=== PATIENT | male | born 1960 | race Caucasian/White ===

== ENCOUNTER 2017-08-27 01:20 | Emergency (ER) | payer SELFPAY ==
[~2017-08-27] VITALS: Ht 182.9 cm; Wt 86.0 kg
[~2017-08-27 01:20] MED LIST: CYCL-36 PO; IBUP800T23 PO; RANI150T PO; TRAM50TA PO; Z.0.NO CURRENT MEDS
[2017-08-27 01:31] VITALS: BP 157/87; PULSE 89; RESP 20; TEMP 97.3; O2SAT 99
[2017-08-27 02:09] VITALS: RESP 16; O2SAT 99
--- NOTE | 2017-08-27 02:09 | PD ---
HPI Chief Complaint: Chest Pain Time Seen by Provider: 01:48 Travel History International Travel<30 days: No Contact w/Intl Traveler<30days: No Traveled to known affect area: No History of Present Illness HPI Is a 57-year-old man who presents to the emergency department complaining of left shoulder and left arm pain and chest pain is been ongoing for the past week. Did not come on super abruptly, but has been worsening since onset. States pain is severe, especially in the morning. Sometimes eating relieves a little bit. A little bit worse with any exertion. Apparently was admitted to [facility] for 3 days, but reports they did not do any tests on him. States they did an x-ray and EKG. States that they "shot me up with morphine". Pain is been constant since onset, worsening. Pains mostly in the chest and radiating to between the shoulder blades at this time. Patient admits to active IV drug use with heroin and cocaine, last used 2 hours ago. History Past Medical History Narrative Medical IV drug use cocaine and heroin Past Surgical History Surgical History: No Previous Surgery Social History Alcohol Use: No Tobacco Use: Yes (04/26 PPD) Allergies-Medications (Allergen,Severity, Reaction): Coded Allergies: No Known Allergies (Verified , 10/17/12) Reported Meds & Prescriptions Reported Meds & Active Scripts Active Flexeril (Cyclobenzaprine HCl) 10 Mg Tab 10 Mg PO TID Ranitidine Hcl (Ranitidine HCl) 150 Mg Tab 150 Mg PO BID Ibuprofen 800 Mg Tab 800 Mg PO TID Tramadol Hcl (Tramadol HCl) 50 Mg Tab 50-100 Mg PO Q6HPRN Reported No Current Meds (Miscellaneous Medication) Misc Review of Systems Except as stated in HPI: all other systems reviewed are Neg Physical Exam Narrative GENERAL: 57-year-old man, generally well-appearing, no acute distress. SKIN: Focused skin assessment warm/dry. Scattered skin wounds. HEAD: Atraumatic. Normocephalic. EYES: Pupils equal and round. No scleral icterus. No injection or drainage. ENT: No nasal bleeding or discharge. Mucous membranes pink and moist. NECK: Trachea midline. No JVD. CARDIOVASCULAR: Regular rate and rhythm. No murmur. RESPIRATORY: No accessory muscle use. Clear to auscultation. Breath sounds equal bilaterally. GASTROINTESTINAL: Abdomen soft, non-tender, nondistended. Hepatic and splenic margins not palpable. MUSCULOSKELETAL: No obvious deformities. No edema. NEUROLOGICAL: Awake and alert. No obvious cranial nerve deficits. Motor grossly within normal limits. Normal speech. PSYCHIATRIC: Appropriate mood and affect; insight and judgment normal. Data Data Last Documented VS Vital Signs Date Time Temp Pulse Resp B/P (MAP) Pulse Ox O2 Delivery O2 Flow Rate FiO2 08/27/17 02:09 16 99 08/27/17 01:53 88 08/27/17 01:31 97.3 157/87 (110) Orders Orders Electrocardiogram (08/27/17 02:02) Complete Blood Count With Diff (08/27/17 02:02) Comprehensive Metabolic Panel (08/27/17 02:02) Magnesium (Mg) (08/27/17 02:02) Prothrombin Time / Inr (Pt) (08/27/17 02:02) Act Partial Throm Time (Ptt) (08/27/17 02:02) Troponin I (08/27/17 02:02) Lipase (08/27/17 02:02) Ecg Monitoring (08/27/17 02:02) Iv Access Insert/Monitor (08/27/17 02:02) Oximetry (08/27/17 02:02) Oxygen Administration (08/27/17 02:02) Sodium Chloride 0.9% Flush (Ns Flush) (08/27/17 02:15) Sodium Chlorid 0.9% 500 Ml Inj (Ns 500 M (08/27/17 02:15) Chest, Pa & Lat (08/27/17 02:02) Cta Thor Abd Aorta W Iv C W3d (08/27/17 02:02) Iohexol 350 Inj (Omnipaque 350 Inj) (08/27/17 03:18) Labs Laboratory Tests Test 08/27/17 02:13 White Blood Count 9.8 TH/MM3 Red Blood Count 4.58 MIL/MM3 Hemoglobin 12.4 GM/DL Hematocrit 36.1 % Mean Corpuscular Volume 78.9 FL Mean Corpuscular Hemoglobin 27.0 PG Mean Corpuscular Hemoglobin Concent 34.2 % Red Cell Distribution Width 13.9 % Platelet Count 481 TH/MM3 Mean Platelet Volume 6.7 FL Neutrophils (%) (Auto) 71.4 % Lymphocytes (%) (Auto) 20.7 % Monocytes (%) (Auto) 6.1 % Eosinophils (%) (Auto) 0.8 % Basophils (%) (Auto) 1.0 % Neutrophils # (Auto) 7.0 TH/MM3 Lymphocytes # (Auto) 2.0 TH/MM3 Monocytes # (Auto) 0.6 TH/MM3 Eosinophils # (Auto) 0.1 TH/MM3 Basophils # (Auto) 0.1 TH/MM3 CBC Comment DIFF FINAL Differential Comment Prothrombin Time 12.7 SEC Prothromb Time International Ratio 1.3 RATIO Activated Partial Thromboplast Time 29.0 SEC Blood Urea Nitrogen 20 MG/DL Creatinine 1.21 MG/DL Random Glucose 131 MG/DL Total Protein 8.5 GM/DL Albumin 3.2 GM/DL Calcium Level 8.8 MG/DL Magnesium Level 1.9 MG/DL Alkaline Phosphatase 100 U/L Aspartate Amino Transf (AST/SGOT) 31 U/L Alanine Aminotransferase (ALT/SGPT) 21 U/L Total Bilirubin 0.3 MG/DL Sodium Level 136 MEQ/L Potassium Level 3.9 MEQ/L Chloride Level 102 MEQ/L Carbon Dioxide Level 24.2 MEQ/L Anion Gap 10 MEQ/L Estimat Glomerular Filtration Rate 62 ML/MIN Troponin I LESS THAN 0.02 NG/ML Lipase 74 U/L MDM Medical Decision Making Medical Screen Exam Complete: Yes Emergency Medical Condition: Yes Interpretation(s) My review of EKG: Normal sinus rhythm at a rate of 84, normal axis, normal intervals, lateral T-wave flattening 1 and aVL, no definite evidence of acute ischemia. LABS: CBC mild anemia CMP is unremarkable. Troponins negative. Total protein elevated. Lipase is normal. Coags are unremarkable. CTA aorta: Negative Chest x-ray is negative. Differential Diagnosis Gastritis/reflux/peptic ulcer disease, dissection, ACS, PE, pancreatitis, other Narrative Course Medical decision making Is a 57-year-old man presents to the emergency department complaining of chest pain rating the left shoulder left arm and between the shoulder blades ongoing for the past week. Reportedly admitted at [facility] for several days. Unclear why. Patient denies any significant testing or cardiovascular testing. Possibly there were sitting on cultures for endocarditis. He states he checked himself out after couple days. Continues using IV heroin and cocaine. Pain is been ongoing. EKG does not show any definite evidence of ischemia. Symptoms been constant. Will check troponin. Constant symptoms for 1 week with a negative troponin is pretty low risk for ACS. Will check CT for dissection given the radiation of his pain, and the nature of it and the history of cocaine use. If negative, will treat for gastritis/peptic ulcer disease. Diagnosis Primary Impression: Chest pain Additional Impression: Gastritis Additional Instructions: Take omeprazole as prescribed. Avoid illicit drugs. Avoid NSAIDs such as ibuprofen, Aleve, aspirin, as well as other stomach irritants such as alcohol. Follow-up with her primary physician for further evaluation. Med/Other Pt SpecificInfo: Prescription(s) given Scripts Omeprazole (Omeprazole) 40 Mg Cap 40 MG PO DAILY, #30 CAP 0 Refills Prov: Ralph Elizondo MD 08/27/17 Disposition: 01 DISCHARGE HOME Condition: Stable Ralph Elizondo MD August 27, 2017 02:09
[2017-08-27] MEDS ORDERED: SODIUM CHLORIDE 0.9% FLUSH 10 ML FLUSH IVF PRN (02:15)
[2017-08-27] MEDS ORDERED: SODIUM CHLORID 0.9% 500 ML INJ 500 ML IV ONE (02:15)
[2017-08-27 02:40] LABS: BASOPHIL # 0.1 TH/MM3 (0-0.2); EOSINOPHIL # 0.1 TH/MM3 (0-0.4); EOSINOPHIL % 0.8 % (0.0-4.0); HEMATOCRIT 36.1 % (39.0-51.0); HEMOGLOBIN 12.4 GM/DL (13.0-17.0); LYMPH % 20.7 % (9.0-44.0); MEAN CELL VOLUME 78.9 FL (80.0-100.0); MEAN CORPUSCULAR HGB CONC 34.2 % (32.0-36.0); MEAN PLATELET VOLUME 6.7 FL (7.0-11.0); MONO % 6.1 % (0.0-8.0); MONOCYTE # 0.6 TH/MM3 (0-0.9); NEUT % 71.4 % (16.0-70.0); PLATELET COUNT 481 TH/MM3 (150-450); RED BLOOD COUNT 4.58 MIL/MM3 (4.50-5.90); RED CELL DISTRIBUTION WIDTH 13.9 % (11.6-17.2); WHITE BLOOD COUNT 9.8 TH/MM3 (4.0-11.0)
--- NOTE | 2017-08-27 02:49 | RADRPT ---
EXAM DATE/TIME: 08/27/2017 02:36 [facility] COMPARISON: No previous studies available for comparison. INDICATIONS : Chest pain. MEDICAL HISTORY : None. SURGICAL HISTORY : None. ENCOUNTER: Initial ACUITY: 1 day PAIN SCORE: 10/10 LOCATION: Bilateral chest FINDINGS: Small nodular densities fairly symmetrically present over the lower lung topete bilaterally are likel y nipple shadows. Granuloma in the lateral left midlung. No definite infiltrate or effusion. Cardiac contours are satisfactory for technique and projection. Degenerative changes present in the spine. CONCLUSION: No definite acute cardiopulmonary disease Polo Cruz MD on August 27, 2017 at 2:46 Board Certified Radiologist. This report was verified electronically.
[2017-08-27 02:53] LABS: INTERNATIONAL NORMALIZED RATIO 1.3 RATIO; PROTHROMBIN TIME - PATIENT 12.7 SEC (9.8-11.6)
[2017-08-27 03:02] LABS: ALKALINE PHOSPHATASE 100 U/L (45-117); TOTAL BILIRUBIN ADULT 0.3 MG/DL (0.2-1.0); TOTAL PROTEIN 8.5 GM/DL (6.4-8.2); TROPONIN I LESS THAN 0.02 NG/ML (0.02-0.05)
[2017-08-27 03:03] LABS: ALBUMIN 3.2 GM/DL (3.4-5.0); ALT (GPT) 21 U/L (12-78); AST (GOT) 31 U/L (15-37); BICARBONATE 24.2 MEQ/L (21.0-32.0); BLOOD UREA NITROGEN 20 MG/DL (7-18); CALCIUM 8.8 MG/DL (8.5-10.1); CHLORIDE 102 MEQ/L (98-107); CREATININE 1.21 MG/DL (0.60-1.30); GLOMERULAR FILTRATION RATE 62 ML/MIN (>89); GLUCOSE,RANDOM 131 MG/DL (74-106); MAGNESIUM 1.9 MG/DL (1.5-2.5); SODIUM (NA) 136 MEQ/L (136-145)
[2017-08-27] MEDS ORDERED: IOHEXOL 350 MG/ML 10 ML VIAL (for RAD DIAG) IVCONTRAST ONE (03:18)
--- NOTE | 2017-08-27 04:46 | RADRPT ---
EXAM DATE/TIME: 08/27/2017 03:12 [facility] COMPARISON: No previous studies available for comparison. INDICATIONS : Chest pain. IV CONTRAST: 99 cc Omnipaque 350 (iohexol) IV RADIATION DOSE: 8.24 CTDIvol (mGy) MEDICAL HISTORY : Gastroesophageal reflux disease. Substance abuse. SURGICAL HISTORY : None. ENCOUNTER: Initial ACUITY: 2 weeks PAIN SCALE: 7/10 LOCATION: chest TECHNIQUE: Volumetric scanning was performed using a multi-row detector CT scanner. The data was post processed with a variety of visualization algorithms including full volume maximum intensity projection, multi -planar sliding thin slab reformation, curved planar reformation, and surface rendering techniques. Using automated exposure control and adjustment of the mA and/or kV according to patient size, radiat ion dose was kept as low as reasonably achievable to obtain optimal diagnostic quality images. DICOM format image data is available electronically for review and comparison. FINDINGS: LUNGS: There is no consolidation or pneumothorax. No concerning pulmonary nodule is visualized. No pleural fluid is present. MEDIASTINUM: No abnormally enlarged lymph nodes by CT criteria. No axillary or hilar abnormalities are identified. ABDOMEN: The liver and spleen are free of focal defects. The gallbladder and pancreas demonstrate no abnormali ty. The adrenal glands are normal. The kidneys demonstrate no evidence of solid renal mass or hydrone phrosis. No free fluid or abdominal masses are identified. No para-aortic adenopathy is seen. PELVIS: No evidence of free fluid or pelvic mass. No abnormally enlarged inguinal or retroperitoneal lymph no florentino are present. The bladder is unremarkable. THORACIC AORTA: The thoracic aorta is normal in caliber throughout. No evidence of dissection. Variant arch anatomy i s identified with direct origin of the left vertebral artery from the aortic arch. Visualized arch ve ssels are unremarkable. ABDOMINAL AORTA: The aorta is normal in caliber without aneurysm or dissection. The renal arteries are patent bilater ally. The proximal celiac and superior mesenteric arteries are patent and normal in diameter. PELVIC VESSELS: Mild eccentric disease involving iliacs. No aneurysm or significant stenosis. No dissection. Visualiz ed proximal thigh vessels are intact CONCLUSION: No acute findings Polo Cruz MD on August 27, 2017 at 4:40 Board Certified Radiologist. This report was verified electronically.
[2017-08-27] MEDS ORDERED: OMEP40CA2 PO (04:55)
[2017-08-27] MEDS ORDERED: PANTOPRAZOLE SOD 40 MG DELAYED RELEASE TAB PO ONE (05:00)
[2017-08-27] MEDS ORDERED: ACETAMINOPHEN/HYDROcodone 325 MG/5 MG TAB PO ONE (05:00)
--- NOTE | 2017-08-27 14:06 | EKG ---
Date Performed: 08/27/2017 Time Performed: 01:43:50 PTAGE: 57 years EKG: Sinus rhythm NONSPECIFIC T-WAVE ABNORMALITY BORDERLINE ECG PREVIOUS TRACING : 10/24/2012 20.48 DOCTOR: Uri Muniz Interpretating Date/Time 08/27/2017 14:04:34
[2017-08-28] MEDS ORDERED: ROBA750T PO (06:23)
== END 2017-08-27 05:15 | disposition home or self-care (01) ==
LOC: NEPE 01:20
DX: R07.9 Chest pain, unspecified (principal); K29.70 Gastritis, unspecified, without bleeding; M25.512 Pain in left shoulder; D64.9 Anemia, unspecified; R94.31 Abnormal electrocardiogram [ECG] [EKG]; F17.200 Nicotine dependence, unspecified, uncomplicated; Z79.899 Other long term (current) drug therapy
CPT/HCPCS: 71046; 71275; 74174; 80053; 83690; 83735; 84484; 85025; 85610; 85730; 93005; 96360; 96361; 99285; J7040; Q9967

== ENCOUNTER 2017-08-28 04:42 | Emergency (ER) | payer SELFPAY ==
[~2017-08-28] VITALS: Ht 182.9 cm; Wt 86.0 kg
[~2017-08-28 04:42] MED LIST changes: +OMEP40CA2 PO
[2017-08-28 04:48] VITALS: BP 135/68; PULSE 86; RESP 22; TEMP 97.5; O2SAT 100
--- NOTE | 2017-08-28 05:09 | PD ---
HPI Chief Complaint: Chest Pain Time Seen by Provider: 04:53 Travel History International Travel<30 days: No Contact w/Intl Traveler<30days: No Traveled to known affect area: No History of Present Illness HPI 57 years old male complains of a back pain. Patient states that the pain started about 2 weeks ago. Patient states that the pain is sharp pain and cramping pain localized between the shoulder blades and upper back area. Patient denies any pain radiation. Patient denies palpitation nausea diaphoresis. Patient states that patient was admitted for hospital recently for chest pain. Patient also was seen in emergency room at [facility] last night for left shoulder pain left arm pain. Workup including EKG, cardiac enzymes and CTA negative acute pathology. Patient admitted to using cocaine heroine recently. Patient denies history hypertension, diabetes, hyperlipidemia. Patient has history of GERD, depression. Patient is a smoker. On a scale from 1-10 the pain is a 10. PFSH Past Medical History Depression: Yes Diminished Hearing: No Gastrointestinal Disorders: Yes GERD: Yes Musculoskeletal: Yes Psychiatric: Yes (DEPRESSION, SUICIDAL, HOPELESSNESS) Past Surgical History Surgical History: No Previous Surgery Other Surgery: No Social History Alcohol Use: No Tobacco Use: Yes (1 04/26 PPD) Substance Use: Yes (PERSCRIPTION MEDS, Cocaine , Heroin) Allergies-Medications (Allergen,Severity, Reaction): Coded Allergies: No Known Allergies (Verified , 10/17/12) Reported Meds & Prescriptions Reported Meds & Active Scripts Active Robaxin (Methocarbamol) 750 Mg Tab 750 Mg PO QID Omeprazole 40 Mg Cap 40 Mg PO DAILY Flexeril (Cyclobenzaprine HCl) 10 Mg Tab 10 Mg PO TID Ranitidine 150 mg (Ranitidine HCl) 150 Mg Tab 150 Mg PO BID Ibuprofen 800 Mg Tab 800 Mg PO TID Tramadol Hcl (Tramadol HCl) 50 Mg Tab 50-100 Mg PO Q6HPRN Reported No Current Meds (Miscellaneous Medication) Misc Review of Systems General / Constitutional: No: Fever Eyes: No: Visual changes HENT: No: Headaches Cardiovascular: No: Chest Pain or Discomfort Respiratory: No: Shortness of Breath Gastrointestinal: No: Abdominal Pain Genitourinary: No: Dysuria Musculoskeletal: No: Pain Skin: No Rash Neurologic: No: Weakness Psychiatric: No: Depression Endocrine: No: Polydipsia Hematologic/Lymphatic: No: Easy Bruising Physical Exam Narrative GENERAL: Well-nourished, well-developed patient. SKIN: Focused skin assessment warm/dry. HEAD: Normocephalic. EYES: No scleral icterus. No injection or drainage. NECK: Supple, trachea midline. No JVD or lymphadenopathy. CARDIOVASCULAR: Regular rate and rhythm without murmurs, gallops, or rubs. RESPIRATORY: Breath sounds equal bilaterally. No accessory muscle use. GASTROINTESTINAL: Abdomen soft, non-tender, nondistended. MUSCULOSKELETAL: No cyanosis, or edema. BACK: Nontender without obvious deformity. No CVA tenderness. Neurologic exam normal. Data Data Last Documented VS Vital Signs Date Time Temp Pulse Resp B/P (MAP) Pulse Ox O2 Delivery O2 Flow Rate FiO2 08/28/17 04:48 97.5 86 22 135/68 (90) 100 Room Air Orders Orders Electrocardiogram (08/28/17 05:02) Complete Blood Count With Diff (08/28/17 05:02) Comprehensive Metabolic Panel (08/28/17 05:02) Creatine Kinase (Cpk) (08/28/17 05:02) Troponin I (08/28/17 05:02) Prothrombin Time / Inr (Pt) (08/28/17 05:02) Act Partial Throm Time (Ptt) (08/28/17 05:02) Chest, Single Ap (08/28/17 05:02) Iv Access Insert/Monitor (08/28/17 05:02) Ecg Monitoring (08/28/17 05:02) Oximetry (08/28/17 05:02) Labs Laboratory Tests Test 08/28/17 05:18 White Blood Count 8.5 TH/MM3 Red Blood Count 4.19 MIL/MM3 Hemoglobin 11.6 GM/DL Hematocrit 33.1 % Mean Corpuscular Volume 79.1 FL Mean Corpuscular Hemoglobin 27.7 PG Mean Corpuscular Hemoglobin Concent 35.0 % Red Cell Distribution Width 13.6 % Platelet Count 434 TH/MM3 Mean Platelet Volume 6.8 FL Neutrophils (%) (Auto) 64.8 % Lymphocytes (%) (Auto) 23.6 % Monocytes (%) (Auto) 8.2 % Eosinophils (%) (Auto) 2.5 % Basophils (%) (Auto) 0.9 % Neutrophils # (Auto) 5.5 TH/MM3 Lymphocytes # (Auto) 2.0 TH/MM3 Monocytes # (Auto) 0.7 TH/MM3 Eosinophils # (Auto) 0.2 TH/MM3 Basophils # (Auto) 0.1 TH/MM3 CBC Comment DIFF FINAL Differential Comment Prothrombin Time 11.8 SEC Prothromb Time International Ratio 1.2 RATIO Activated Partial Thromboplast Time 30.1 SEC Blood Urea Nitrogen 17 MG/DL Creatinine 0.83 MG/DL Random Glucose 91 MG/DL Total Protein 7.7 GM/DL Albumin 2.7 GM/DL Calcium Level 8.3 MG/DL Alkaline Phosphatase 125 U/L Aspartate Amino Transf (AST/SGOT) 21 U/L Alanine Aminotransferase (ALT/SGPT) 20 U/L Total Bilirubin 0.2 MG/DL Sodium Level 139 MEQ/L Potassium Level 3.9 MEQ/L Chloride Level 108 MEQ/L Carbon Dioxide Level 23.8 MEQ/L Anion Gap 7 MEQ/L Estimat Glomerular Filtration Rate 96 ML/MIN Total Creatine Kinase 66 U/L Troponin I LESS THAN 0.02 NG/ML MDM Medical Decision Making Medical Screen Exam Complete: Yes Emergency Medical Condition: Yes Interpretation(s) 6:21 AM. EKG shows sinus rhythm nonspecific ST-T wave change. CBC within normal limits. CMP within normal limits. Cardiac enzymes are normal. Differential Diagnosis Differential diagnosis including musculoskeletal, angina, VT, PE, pneumothorax. Narrative Course 57-year-old male with persistent back pain. History of heroine and cocaine abuse. Diagnosis Primary Impression: Upper back pain Patient Instructions: General Instructions Additional Instructions: Take medication as needed for pain. Follow-up with personal physician. Advised patient to avoid abusing drugs. [facility] as needed. Med/Other Pt SpecificInfo: Prescription(s) given Scripts Methocarbamol (Robaxin) 750 Mg Tab 750 MG PO QID for Muscle Spasm, #40 TAB 0 Refills Prov: Satnam Avila MD 08/28/17 Disposition: 01 DISCHARGE HOME Condition: Stable Satnam Avila MD August 28, 2017 05:09
[2017-08-28 05:36] LABS: AUTOMATED NEUTROPHIL # 5.5 TH/MM3 (1.8-7.7); BASOPHIL # 0.1 TH/MM3 (0-0.2); BASOPHIL % 0.9 % (0.0-2.0); EOSINOPHIL # 0.2 TH/MM3 (0-0.4); EOSINOPHIL % 2.5 % (0.0-4.0); HEMATOCRIT 33.1 % (39.0-51.0); HEMOGLOBIN 11.6 GM/DL (13.0-17.0); LYMPH % 23.6 % (9.0-44.0); MEAN CELL VOLUME 79.1 FL (80.0-100.0); MEAN CORPUSCULAR HEMOGLOBIN 27.7 PG (27.0-34.0); MEAN PLATELET VOLUME 6.8 FL (7.0-11.0); MONO % 8.2 % (0.0-8.0); MONOCYTE # 0.7 TH/MM3 (0-0.9); NEUT % 64.8 % (16.0-70.0); PLATELET COUNT 434 TH/MM3 (150-450); RED BLOOD COUNT 4.19 MIL/MM3 (4.50-5.90); RED CELL DISTRIBUTION WIDTH 13.6 % (11.6-17.2); WHITE BLOOD COUNT 8.5 TH/MM3 (4.0-11.0)
[2017-08-28 05:49] LABS: INTERNATIONAL NORMALIZED RATIO 1.2 RATIO; PROTHROMBIN TIME - PATIENT 11.8 SEC (9.8-11.6)
[2017-08-28 05:59] LABS: ALBUMIN 2.7 GM/DL (3.4-5.0); ALT (GPT) 20 U/L (12-78); AST (GOT) 21 U/L (15-37); BICARBONATE 23.8 MEQ/L (21.0-32.0); BLOOD UREA NITROGEN 17 MG/DL (7-18); CALCIUM 8.3 MG/DL (8.5-10.1); CHLORIDE 108 MEQ/L (98-107); CREATININE 0.83 MG/DL (0.60-1.30); GLOMERULAR FILTRATION RATE 96 ML/MIN (>89); GLUCOSE,RANDOM 91 MG/DL (74-106); SODIUM (NA) 139 MEQ/L (136-145)
[2017-08-28 06:02] LABS: ALKALINE PHOSPHATASE 125 U/L (45-117); TOTAL BILIRUBIN ADULT 0.2 MG/DL (0.2-1.0); TOTAL PROTEIN 7.7 GM/DL (6.4-8.2); TROPONIN I LESS THAN 0.02 NG/ML (0.02-0.05)
[2017-08-28] MEDS ORDERED: ROBA750T PO (06:23)
--- NOTE | 2017-08-28 06:23 | RADRPT ---
EXAM DATE/TIME: 08/28/2017 05:27 [facility] COMPARISON: CHEST PA & LAT, August 27, 2017, 2:36. INDICATIONS : Chest pain. MEDICAL HISTORY : Gastroesophageal reflux disease. Substance abuse SURGICAL HISTORY : None. ENCOUNTER: Initial ACUITY: 1 day PAIN SCORE: 8/10 LOCATION: Bilateral chest FINDINGS: A single view of the chest demonstrates the lungs to be symmetrically aerated without evidence of mas s, infiltrate or effusion. The cardiomediastinal contours are unremarkable. Osseous structures are intact. CONCLUSION: No acute disease. Polo Cruz MD on August 28, 2017 at 6:21 Board Certified Radiologist. This report was verified electronically.
--- NOTE | 2017-08-28 12:34 | EKG ---
Date Performed: 08/28/2017 Time Performed: 05:15:44 PTAGE: 57 years EKG: Sinus rhythm NORMAL ECG PREVIOUS TRACING : 08/27/2017 01.43 Since the previous tracing, no significant change noted DOCTOR: Uri Muniz Interpretating Date/Time 08/28/2017 12:33:15
== END 2017-08-28 07:00 | disposition home or self-care (01) ==
LOC: NEPE 04:42
DX: M54.6 Pain in thoracic spine (principal); F17.210 Nicotine dependence, cigarettes, uncomplicated; K21.9 Gastro-esophageal reflux disease without esophagitis
CPT/HCPCS: 71045; 80053; 82550; 84484; 85025; 85610; 85730; 93005; 99285